=== PATIENT | male | born 1980 | race Hispanic/Latino ===

== ENCOUNTER 2021-01-26 12:15 | Inpatient (IN) | payer BC, OTHER ==
[~2021-01-26] VITALS: Ht 167.6 cm; Wt 128.0 kg
[2021-01-26] MEDS ORDERED: CEPHALEXIN 500 MG CAPSULE ONE (12:26)
[2021-01-26] MEDS ORDERED: TETANUS/DIPHTHERIA TOXOID [ADULT] 0.5 ML VIAL IM ONE (12:27)
[2021-01-26 12:42] LABS: APPEARANCE,URINE Cloudy (CLEAR); BILIRUBIN,URINE Small (NEGATIVE); COLOR,URINE Dark Yellow (YELLOW); GLUCOSE, URINE (UA) Negative (NEGATIVE); KETONES,URINE 15 mg/dL (NEGATIVE); LEUKOCYTE ESTERASE ,URINE Negative (NEGATIVE); NITRATE,URINE Negative (NEGATIVE); OCCULT BLOOD,URINE Small (NEGATIVE); PROTEIN,URINE POS 1+ mg/dL (NEGATIVE)
[2021-01-26 12:47] LABS: MUCUS,URINE Many LPF (None Seen)
[2021-01-26 12:48] LABS: BASOPHILS % (AUTO) 0.3 % (0.0-5.0); EOSINOPHILS % (AUTO) 0.2 % (0.0-8.0); HEMATOCRIT 49.5 % (42-54); LYMPHOCYTES % (AUTO) 15.4 % (21.0-51.0); MEAN CORPUSCULAR HEMOGLOBIN 31.1 pg (27.0-33.0); MEAN CORPUSCULAR HGB CONC 34.3 g/dL (32.0-36.0); MEAN CORPUSCULAR VOLUME 90.7 fL (79-99); MONOCYTES % (AUTO) 6.8 % (3.0-13.0); NEUTROPHILS % (AUTO) 76.9 % (40.0-77.0); PLATELET COUNT (AUTO) 373 K/uL (130-400); RED BLOOD CELL COUNT(AUTO) 5.46 MIL/uL (4.50-6.20); RED CELL DISTRIBUTION WIDTH 13.5 % (11.0-15.5)
[2021-01-26 12:48] LABS: BACTERIA,URINE Rare /HPF (None Seen); WBC,URINE 0-1 /HPF (0-1)
[2021-01-26 12:49] LABS: AMPHET/METH SCREEN,URINE NEGATIVE (NEGATIVE); BARBITURATE SCREEN, URINE NEGATIVE (NEGATIVE); BENZODIAZEPINES SCREEN,URINE POSITIVE (NEGATIVE); CANNABINOID SCREEN,URINE NEGATIVE (NEGATIVE); COCAINE SCREEN,URINE POSITIVE (NEGATIVE); OPIATE SCREEN,URINE NEGATIVE (NEGATIVE); PHENCYCLIDINE SCREEN,URINE NEGATIVE (NEGATIVE)
[2021-01-26 12:50] LABS: HYALINE CASTS, URINE 26-50 /LPF (0-1 /LPF)
[2021-01-26 12:55] LABS: CREATININE 1.3 mg/dL (0.5-1.5); POTASSIUM 4.4 mmol/L (3.5-5.1)
[2021-01-26 12:59] LABS: ALBUMIN 4.7 g/dL (3.5-5.0); BILIRUBIN,TOTAL 0.7 mg/dL (0.2-1.0); TOTAL PROTEIN, SERUM 8.6 g/dL (6.0-8.3)
[2021-01-26] MEDS ORDERED: CEFAZOLIN SODIUM 1 GM VIAL ONE (13:24)
[2021-01-26 14:35] VITALS: BP 153/89
[2021-01-26] MEDS ORDERED: ACETAMINOPHEN 325 MG TAB PO PRN (15:30)
[2021-01-26] MEDS ORDERED: ONDANSETRON HCL 4 MG/2 ML VIAL IVP PRN (15:30)
[2021-01-26] MEDS ORDERED: PHARMACY COMMUNICATION MISC SCH (15:45)
[2021-01-26 16:15] VITALS: BP 142/86
[2021-01-26] MEDS: CEFTRIAXONE SODIUM 1 GM IVP SCH (17:26)
[2021-01-26 20:31] VITALS: BP 147/82
[2021-01-26] MEDS: TRAZODONE HCL 100 MG TABLET PO SCH (20:36)
[2021-01-26] MEDS: FAMOTIDINE 20MG TAB 20 MG TAB PO SCH (21:00)
[2021-01-26] MEDS: LACTATED RINGERS 1000ML 1,000 ML IV SCH (22:00)
[2021-01-26 23:59] VITALS: BP 141/65
[2021-01-27] VITALS (20 sets, daily range): BP systolic 107–138; BP diastolic 60–85
[2021-01-27 05:16] LABS: BASOPHILS % (AUTO) 0.5 % (0.0-5.0); EOSINOPHILS % (AUTO) 2.2 % (0.0-8.0); LYMPHOCYTES % (AUTO) 34.1 % (21.0-51.0); MEAN CORPUSCULAR HEMOGLOBIN 30.9 pg (27.0-33.0); MEAN CORPUSCULAR HGB CONC 34.5 g/dL (32.0-36.0); MEAN CORPUSCULAR VOLUME 89.4 fL (79-99); MONOCYTES % (AUTO) 8.9 % (3.0-13.0); PLATELET COUNT (AUTO) 302 K/uL (130-400); RED BLOOD CELL COUNT(AUTO) 4.92 MIL/uL (4.50-6.20); RED CELL DISTRIBUTION WIDTH 13.2 % (11.0-15.5); WHITE BLOOD COUNT (AUTO) 10.1 K/uL (4.8-10.8)
[2021-01-27 05:57] LABS: POTASSIUM 3.7 mmol/L (3.5-5.1)
[2021-01-27] MEDS ORDERED: LORAZEPAM 2 MG/ML 1 ML VIAL IVP PRN (07:45)
[2021-01-27] MEDS ORDERED: PHARMACY COMMUNICATION MISC PRN (07:45)
[2021-01-27 07:55] LABS: MAGNESIUM 1.9 mg/dL (1.80-2.40); PHOSPHORUS 2.9 mg/dL (2.5-4.9)
[2021-01-27] MEDS: ENOXAPARIN SODIUM 30 MG/0.3 ML SQ SCH (09:00)
[2021-01-27] MEDS: FAMOTIDINE 20MG TAB 20 MG TAB PO SCH ×2 (09:51→20:32)
[2021-01-27] MEDS: THIAMINE HCL 100 MG/ML 2ML VIAL IM SCH (09:57)
[2021-01-27] MEDS: MULTIVITAMIN TABLET PO SCH (10:01)
[2021-01-27] MEDS: FOLIC ACID 1 MG TABLET PO SCH (10:01)
[2021-01-27] MEDS: THIAMINE HCL 100 MG, FOLIC ACID 1 MG, M.V.I. IV [ADULT] 10 ML in SODIUM CHLORIDE 0.9% 1... IV SCH (10:09)
[2021-01-27] MEDS ORDERED: MIDAZOLAM HCL 1 MG/ML 2ML VIAL ONE (11:50)
[2021-01-27] MEDS ORDERED: PROPOFOL 10 MG/ML 20ML VIAL IV ONE ×2 (11:50→12:22)
[2021-01-27] MEDS ORDERED: SUCCINYLCHOLINE CHLORIDE 20 MG/ML 10 ML VIAL ONE (11:52)
[2021-01-27] MEDS ORDERED: ROCURONIUM 10MG/1ML SYR 10 MG/ML ML ONE (11:53)
[2021-01-27] MEDS ORDERED: FENTANYL CITRATE PF 50 MCG/1 ML 2ML VIAL ONE (11:55)
[2021-01-27] MEDS ORDERED: CEFAZOLIN SODIUM 1 GM VIAL ONE (12:01)
[2021-01-27] MEDS ORDERED: ONDANSETRON HCL 4 MG/2 ML VIAL ONE (12:22)
[2021-01-27] MEDS ORDERED: MEPERIDINE-PF 25 MG/ML SYG ONE (13:02)
[2021-01-27] MEDS: ACETAMINOPHEN EXTRA STRENGTH 500 MG TABLET PO PRN ×2 (13:57→18:43)
[2021-01-27] MEDS ORDERED: PAROXETINE HCL 20 MG TABLET PO SCH (17:00)
[2021-01-27] MEDS: CEFTRIAXONE SODIUM 1 GM IVP SCH (17:30)
[2021-01-27] MEDS: TRAZODONE HCL 100 MG TABLET PO SCH (20:32)
[2021-01-28 03:03] VITALS: BP 135/63
[2021-01-28 05:05] LABS: BASOPHILS % (AUTO) 0.4 % (0.0-5.0); EOSINOPHILS % (AUTO) 2.8 % (0.0-8.0); HEMATOCRIT 42.3 % (42-54); LYMPHOCYTES % (AUTO) 26.4 % (21.0-51.0); MEAN CORPUSCULAR HEMOGLOBIN 30.5 pg (27.0-33.0); MEAN CORPUSCULAR HGB CONC 33.6 g/dL (32.0-36.0); MEAN CORPUSCULAR VOLUME 90.8 fL (79-99); MONOCYTES % (AUTO) 8.5 % (3.0-13.0); NEUTROPHILS % (AUTO) 61.5 % (40.0-77.0); PLATELET COUNT (AUTO) 296 K/uL (130-400); RED BLOOD CELL COUNT(AUTO) 4.66 MIL/uL (4.50-6.20); RED CELL DISTRIBUTION WIDTH 12.9 % (11.0-15.5); WHITE BLOOD COUNT (AUTO) 9.2 K/uL (4.8-10.8)
[2021-01-28 05:34] LABS: POTASSIUM 4.3 mmol/L (3.5-5.1)
[2021-01-28] MEDS: THIAMINE HCL 100 MG, FOLIC ACID 1 MG, M.V.I. IV [ADULT] 10 ML in SODIUM CHLORIDE 0.9% 1... IV SCH (07:45)
[2021-01-28] MEDS: THIAMINE HCL 100 MG/ML 2ML VIAL IM SCH (08:43)
[2021-01-28] MEDS: FAMOTIDINE 20MG TAB 20 MG TAB PO SCH ×2 (08:43→20:36)
[2021-01-28] MEDS: FOLIC ACID 1 MG TABLET PO SCH (08:43)
[2021-01-28] MEDS: MULTIVITAMIN TABLET PO SCH (08:43)
[2021-01-28] MEDS: ENOXAPARIN SODIUM 30 MG/0.3 ML SQ SCH (08:44)
[2021-01-28] MEDS: CHLORDIAZEPOXIDE HCL 25 MG CAP PO PRN (08:56)
[2021-01-28] MEDS: PAROXETINE HCL 20 MG TABLET PO SCH (15:26)
[2021-01-28] MEDS: CEFTRIAXONE SODIUM 1 GM IVP SCH (18:05)
[2021-01-28] MEDS: LACTATED RINGERS 1000ML 1,000 ML IV SCH (18:05)
[2021-01-28] MEDS: TRAZODONE HCL 100 MG TABLET PO SCH ×2 (18:54→20:42)
[2021-01-28 19:00] VITALS: BP 153/85
[2021-01-28 23:00] VITALS: BP 125/74
[2021-01-29 03:00] VITALS: BP 128/69
[2021-01-29 05:25] LABS: BASOPHILS % (AUTO) 0.5 % (0.0-5.0); EOSINOPHILS % (AUTO) 3.5 % (0.0-8.0); HEMATOCRIT 40.6 % (42-54); LYMPHOCYTES % (AUTO) 28.1 % (21.0-51.0); MEAN CORPUSCULAR HEMOGLOBIN 30.8 pg (27.0-33.0); MEAN CORPUSCULAR HGB CONC 34.2 g/dL (32.0-36.0); MONOCYTES % (AUTO) 7.8 % (3.0-13.0); NEUTROPHILS % (AUTO) 59.7 % (40.0-77.0); PLATELET COUNT (AUTO) 309 K/uL (130-400); RED BLOOD CELL COUNT(AUTO) 4.51 MIL/uL (4.50-6.20); RED CELL DISTRIBUTION WIDTH 12.9 % (11.0-15.5); WHITE BLOOD COUNT (AUTO) 8.5 K/uL (4.8-10.8)
[2021-01-29] MEDS: LACTATED RINGERS 1000ML 1,000 ML IV SCH (05:31)
[2021-01-29 05:41] LABS: CREATININE 0.9 mg/dL (0.5-1.5); POTASSIUM 4.1 mmol/L (3.5-5.1)
[2021-01-29] MEDS ORDERED: CEPH500B PO (08:23)
[2021-01-29] MEDS: FOLIC ACID 1 MG TABLET PO SCH (09:17)
[2021-01-29] MEDS: MULTIVITAMIN TABLET PO SCH (09:17)
[2021-01-29] MEDS: CHLORDIAZEPOXIDE HCL 25 MG CAP PO PRN (09:17)
[2021-01-29] MEDS: FAMOTIDINE 20MG TAB 20 MG TAB PO SCH (09:17)
[2021-01-29] MEDS: THIAMINE HCL 100 MG/ML 2ML VIAL IM SCH (09:17)
[2021-01-29] MEDS: PAROXETINE HCL 20 MG TABLET PO SCH (09:18)
[2021-01-29] MEDS: ENOXAPARIN SODIUM 30 MG/0.3 ML SQ SCH (09:18)
[2021-01-29] MEDS ORDERED: COMPOUND IV REFRIGERATED 1 EACH IVSOLN MISC PRN (10:00)
[2021-01-29] MEDS: THIAMINE HCL 100 MG, FOLIC ACID 1 MG, M.V.I. IV [ADULT] 10 ML in SODIUM CHLORIDE 0.9% 1... IV SCH (12:21)
== END 2021-01-29 17:00 | disposition home or self-care (01) | DRG 571 ==
LOC: EDH 12:15 → OBSVTOIN 13:16 → EDHIP 13:16 → 3BH 14:50
PROVIDERS: ADMIT Family Medicine; ATTEND Family Medicine
PROC: 3E0234Z Introduction of Serum, Toxoid and Vaccine into Muscle, Percutaneous Approach (ICD-10-PCS; 2021-01-26)
PROC: 0JBH0ZZ Excision of Left Lower Arm Subcutaneous Tissue and Fascia, Open Approach (ICD-10-PCS; principal; 2021-01-27 11:59)
DX: S61.512A Laceration without foreign body of left wrist, initial encounter (principal); N39.0 Urinary tract infection, site not specified; M62.82 Rhabdomyolysis; F32.2 Major depressive disorder, single episode, severe without psychotic features; F10.10 Alcohol abuse, uncomplicated; X78.9XXA Intentional self-harm by unspecified sharp object, initial encounter; F14.90 Cocaine use, unspecified, uncomplicated; Z66 Do not resuscitate; F19.10 Other psychoactive substance abuse, uncomplicated; T14.91XA Suicide attempt, initial encounter; Y93.89 Activity, other specified; Y92.89 Other specified places as the place of occurrence of the external cause; Y99.8 Other external cause status; Z23 Encounter for immunization; Z20.822 Contact with and (suspected) exposure to COVID-19
CPT/HCPCS: 36415; 73110; 80048; 80053; 80305; 81001; 82550; 83735; 84100; 85025; 87426; 90714; A4565; G0378; J0330; J0690; J0696; J1650; J2175; J2250; J2405; J2704; J3010; J3411; J3490; J7030; J7120; U0003